=== PATIENT | female | born 1945 | race Caucasian/White ===

== ENCOUNTER → 2016-06-22 | Outpatient (CLI) | payer OTHER, MEDICAID ==
--- NOTE | 2016-06-22 16:10 | CT ---
CT Scan of the Abdomen and Pelvis (Without IV Contrast) Clinical Indications: Left upper quadrant pain. Technique: No intravenous contrast was given. Oral contrast was administered Multidetector helical C T imaging is performed from the diaphragm to the symphysis pubis. Dose reduction techniques were util ized. Findings: Abdomen: The lung bases are clear, and there is no significant pleural fluid. The liver is normal. N o calcifications are seen in the gallbladder. The pancreas and spleen are normal. The adrenal glands and kidneys are normal. The aorta tapers normally. No stones are found. There is a fatty nodule in t he left upper abdomen measuring 2.6 x 3.5 x 3.3 cm. It measures -10 Hounsfield units and is associate d with limb of the right adrenal gland and consistent with an adrenal adenoma versus adrenal myelolip artur. Pelvis: The urinary bladder is unremarkable. No free fluid in the pelvis. No masses are identified. There is no significant diverticular disease or obvious source for left upper quadrant abdominal pain . There is mild sigmoid diverticulosis in the low pelvis. Impression: 1. Fatty adrenal nodule most likely benign adrenal myelolipoma. 2. No radiographic evidence to explain the patient's left upper quadrant pain. Specifically, no evide nce of significant diverticular disease except for mild sigmoid diverticulosis.
== END ==
LOC: FIMAGING 11:38
PROVIDERS: ATTEND Family Medicine
DX: R10.12 Left upper quadrant pain (principal); K57.30 Diverticulosis of large intestine without perforation or abscess without bleeding; E27.8 Other specified disorders of adrenal gland